=== PATIENT | male | born 1955 | race Caucasian/White ===

== ENCOUNTER 2017-08-04 00:20 | Outpatient (CLI) | payer MEDICARE, BC | END 2017-08-04 23:59 | disposition home or self-care (01) | LOC: DIABETIC 00:20 | PROVIDERS: ATTEND Specialist | DX: E11.65 Type 2 diabetes mellitus with hyperglycemia (principal) | CPT/HCPCS: G0108 ==

== ENCOUNTER 2017-12-31 02:10 | Outpatient (CLI) | payer MEDICARE, BC | END 2017-12-31 23:59 | disposition home or self-care (01) | LOC: DIABETIC 02:10 | PROVIDERS: ATTEND Specialist | DX: E11.65 Type 2 diabetes mellitus with hyperglycemia (principal); Z79.84 Long term (current) use of oral hypoglycemic drugs | CPT/HCPCS: G0108 ==

== ENCOUNTER 2018-04-01 01:23 | Outpatient (CLI) | payer MEDICARE, BC | END 2018-04-01 23:59 | disposition home or self-care (01) | LOC: DIABETIC 01:23 | PROVIDERS: ATTEND Specialist | DX: E11.65 Type 2 diabetes mellitus with hyperglycemia (principal); Z79.84 Long term (current) use of oral hypoglycemic drugs | CPT/HCPCS: G0108 ==

== ENCOUNTER 2018-07-13 02:11 | Outpatient (CLI) | payer MEDICARE, BC | END 2018-07-13 23:59 | disposition home or self-care (01) | LOC: DIABETIC 02:11 | PROVIDERS: ATTEND Specialist | DX: E11.9 Type 2 diabetes mellitus without complications (principal) | CPT/HCPCS: G0108 ==